=== PATIENT | female | born 1990 | race Caucasian/White ===

== ENCOUNTER 2016-06-23 15:31 | Emergency (ER) | payer MEDICAID ==
[~2016-06-23] VITALS: Ht 175.3 cm; Wt 95.5 kg
[~2016-06-23 15:31] MED LIST: RANI150 PO; VIST25CA PO; Z.0.BCPILL PO
[2016-06-23 15:34] VITALS: BP 129/84; PULSE 88; RESP 20; TEMP 98.5; O2SAT 98
--- NOTE | 2016-06-23 15:37 | PD ---
Physical Exam Time Seen by Provider: 15:35 Narrative 25 year old female here with heart palpitations for 3 days, "pounding" headache , "bloodshot" eyes. VSS Seen at triage desk, awaiting bed placement. Data Data Last Documented VS Vital Signs Date Time Temp Pulse Resp B/P Pulse Ox O2 Delivery O2 Flow Rate FiO2 06/23/16 15:34 98.5 88 20 129/84 98 Room Air [facility] Medical Record Reviewed: Yes Supervised Visit with ELIEZER: Yes Franklin Glover Jun 23, 2016 15:37
[2016-06-23 16:52] LABS: AUTOMATED NEUTROPHIL # 4.6 TH/MM3 (1.8-7.7); BASOPHIL % 0.4 % (0.0-2.0); EOSINOPHIL # 0.1 TH/MM3 (0-0.4); EOSINOPHIL % 0.8 % (0.0-4.0); HEMATOCRIT 39.1 % (35.0-46.0); HEMO FLAGS DIFF FINAL; LYMPH % 36.8 % (9.0-44.0); LYMPHOCYTE # 3.2 TH/MM3 (1.0-4.8); MEAN CORPUSCULAR HEMOGLOBIN 29.5 PG (27.0-34.0); MEAN CORPUSCULAR HGB CONC 33.1 % (32.0-36.0); MONO % 9.5 % (0.0-8.0); NEUT % 52.5 % (16.0-70.0); PLATELET COUNT 248 TH/MM3 (150-450); RED CELL DISTRIBUTION WIDTH 12.3 % (11.6-17.2); WHITE BLOOD COUNT 8.7 TH/MM3 (4.0-11.0)
--- NOTE | 2016-06-23 16:54 | PD ---
HPI Chief Complaint: Cardiac Complaint Time Seen by Provider: 16:18 Travel History International Travel<30 days: No Contact w/Intl Traveler<30days: No Traveled to known affect area: No History of Present Illness HPI 25-year-old female complains of palpitation, congestion, eye redness, and headache. Patient states that she has history of recurrent headache and has been seen by personal physician for that. Patient started noticed IV redness and palpitation since this morning. Patient states that she drinks coffee once a day. Patient denies any excessive caffeine intake. Patient states the headache aching headache diffuse over the head. Patient denies any visual change. Patient denies any neck pain. Patient denies any chest pain or shortness of breath. Patient denies abdominal pain. Patient denies any nausea vomiting diarrhea. Patient denies any history of thyroid disease. PFSH Past Medical History Anxiety: Yes Diminished Hearing: No Psychiatric: Yes (Anxiety disorder) Respiratory: Yes (BORN W/COLLAPSED TRACHEA) Immunizations Current: Yes ?: Not LMP: DEPO : 1 Para: 1 Miscarriage: 0 : 0 Past Surgical History Abdominal Surgery: Yes () Section: Yes (X2) Other Surgery: Yes (tracheal surgery for "collapsed trachea") Social History Alcohol Use: No Tobacco Use: No Substance Use: No Allergies-Medications (Allergen,Severity, Reaction): Coded Allergies: Keflex (Verified Allergy, Severe, TONGUE SWELLS, 06/23/16) Zithromax (Verified Allergy, Severe, TONGUE SWELLS, 06/23/16) Reported Meds & Prescriptions Reported Meds & Active Scripts Active No Active Prescriptions or Reported Medications Review of Systems General / Constitutional: No: Fever Eyes: No: Visual changes HENT: No: Headaches Cardiovascular: Positive: Palpitations, No: Chest Pain or Discomfort Respiratory: No: Shortness of Breath Gastrointestinal: No: Abdominal Pain Genitourinary: No: Dysuria Musculoskeletal: No: Pain Skin: No Rash Neurologic: No: Weakness Psychiatric: No: Depression Endocrine: No: Polydipsia Hematologic/Lymphatic: No: Easy Bruising Physical Exam Narrative GENERAL: Well-nourished, well-developed patient. SKIN: Focused skin assessment warm/dry. HEAD: Normocephalic. EYES: No scleral icterus. No injection or drainage. NECK: Supple, trachea midline. No JVD or lymphadenopathy. CARDIOVASCULAR: Irregular rate and rhythm without murmurs, gallops, or rubs. RESPIRATORY: Breath sounds equal bilaterally. No accessory muscle use. GASTROINTESTINAL: Abdomen soft, non-tender, nondistended. MUSCULOSKELETAL: No cyanosis, or edema. BACK: Nontender without obvious deformity. No CVA tenderness. Neurologic exam normal. Data Data Last Documented VS Vital Signs Date Time Temp Pulse Resp B/P Pulse Ox O2 Delivery O2 Flow Rate FiO2 06/23/16 16:00 74 18 Room Air 06/23/16 15:34 98.5 129/84 98 Orders Electrocardiogram (06/23/16 ) Complete Blood Count With Diff (06/23/16 16:32) Basic Metabolic Panel (Bmp) (06/23/16 16:32) Thyroid Stimulating Hormone (06/23/16 16:32) Iv Access Insert/Monitor (06/23/16 16:32) Ecg Monitoring (06/23/16 16:32) Oximetry (06/23/16 16:32) Ct Brain W/O Iv Contrast(Rout) (06/23/16 16:53) Labs Laboratory Tests Test 06/23/16 16:30 White Blood Count 8.7 TH/MM3 Red Blood Count 4.40 MIL/MM3 Hemoglobin 13.0 GM/DL Hematocrit 39.1 % Mean Corpuscular Volume 89.0 FL Mean Corpuscular Hemoglobin 29.5 PG Mean Corpuscular Hemoglobin 33.1 % Concent Red Cell Distribution Width 12.3 % Platelet Count 248 TH/MM3 Mean Platelet Volume 8.5 FL Neutrophils (%) (Auto) 52.5 % Lymphocytes (%) (Auto) 36.8 % Monocytes (%) (Auto) 9.5 % Eosinophils (%) (Auto) 0.8 % Basophils (%) (Auto) 0.4 % Neutrophils # (Auto) 4.6 TH/MM3 Lymphocytes # (Auto) 3.2 TH/MM3 Monocytes # (Auto) 0.8 TH/MM3 Eosinophils # (Auto) 0.1 TH/MM3 Basophils # (Auto) 0.0 TH/MM3 CBC Comment DIFF FINAL Differential Comment MDM Medical Decision Making Medical Screen Exam Complete: Yes Emergency Medical Condition: Yes Differential Diagnosis Differential diagnosis including cardiac arrhythmia, PACs, PVCs, atrial fibrillation, atrial flutter, arrhythmia, conjunctivitis, URI. Narrative Course 25-year-old female with palpitation, headache, redeye, congestion. Diagnosis Primary Impression: Cardiac arrhythmia Qualified Code: I49.1 - Atrial premature depolarization Additional Impressions: Cephalgia Qualified Code: R51 - Nonintractable episodic headache, unspecified headache type Conjunctivitis Qualified Code: B30.9 - Acute viral conjunctivitis of both eyes Scripts No Active Prescriptions or Reported Meds Gregg Gamboa MD Jun 23, 2016 16:54
[2016-06-23 17:17] LABS: BICARBONATE 28.3 MEQ/L (21.0-32.0); POTASSIUM 3.9 MEQ/L (3.5-5.1)
--- NOTE | 2016-06-23 17:24 | RADRPT ---
EXAM DATE/TIME: 06/23/2016 17:10 [facility] COMPARISON: No previous studies available for comparison. INDICATIONS : Headache with palpitations for 3 days. RADIATION DOSE: 35.97 CTDIvol (mGy) MEDICAL HISTORY : None SURGICAL HISTORY : None. ENCOUNTER: Initial ACUITY: 3 days PAIN SCALE: 7/10 LOCATION: cranial TECHNIQUE: Multiple contiguous axial images were obtained of the head. Using automated exposure control and adj ustment of the mA and/or kV according to patient size, radiation dose was kept as low as reasonably a chievable to obtain optimal diagnostic quality images. FINDINGS: CEREBRUM: The ventricles are normal for age. No evidence of midline shift, mass lesion, hemorrhage or acute in farction. No extra-axial fluid collections are seen. POSTERIOR FOSSA: The cerebellum and brainstem are intact. The 4th ventricle is midline. The cerebellopontine angle i s unremarkable. EXTRACRANIAL: The visualized portion of the orbits is intact. SKULL: The calvaria is intact. No evidence of skull fracture. CONCLUSION: Normal examination. Blanco Pena MD on June 23, 2016 at 17:22 Board Certified Radiologist. This report was verified electronically.
[2016-06-23 17:30] VITALS: BP 121/64; PULSE 73; RESP 18; O2SAT 99
[2016-06-23] MEDS ORDERED: KETOROLAC TROMETHAMINE 30 MG/ML (IVP) VIAL IV PUSH ONE (18:15)
--- NOTE | 2016-06-23 18:47 | PD ---
Physical Exam Narrative The patient was initially evaluated by the previous provider and sent out to me at the beginning of my shift pending labs, CT head, and disposition. See his note for further details. Briefly this is a 25-year-old female who is here for evaluation of posterior headache, palpitations, and bilateral red eyes. Patient has had intermittent headaches for weeks. This morning she noted bilateral red eyes. This afternoon she was having some palpitations in her chest. On my assessment the patient is resting comfortably. She states she feels well. Her physical exam is remarkable for bilateral conjunctival injection without exudate, otherwise unremarkable. Lung sounds are clear and equal bilaterally. Heart has a regular rate and rhythm. No murmurs. No nuchal rigidity. EKG: Sinus, rate 80, normal axis, normal intervals, no acute ischemic abnormality. Vital signs show heart rate 88, blood pressure 129/84, pulse ox 98% on room air , oral temp of 98.5F. CBC is unremarkable. BMP is unremarkable. TSH is 1.23. Urine is negative. CT head: Normal examination. Patient was given a dose of Toradol and reports significant improvement in her posterior head pain. She has no nuchal rigidity. SAH/meningitis/encephalitis are very unlikely. She was made aware of all findings. She does have bilateral conjunctivitis. I will prescribe Polytrim for this. She is overall very well-appearing. She'll be discharged home with outpatient follow-up with her primary care physician this week. She was informed on when to return to the emergency department. She verbalizes understanding and agreement with plan. Data Data Last Documented VS Vital Signs Date Time Temp Pulse Resp B/P Pulse Ox O2 Delivery O2 Flow Rate FiO2 06/23/16 17:30 73 18 121/64 99 Room Air 06/23/16 15:34 98.5 Orders Electrocardiogram (06/23/16 ) Complete Blood Count With Diff (06/23/16 16:32) Basic Metabolic Panel (Bmp) (06/23/16 16:32) Thyroid Stimulating Hormone (06/23/16 16:32) Iv Access Insert/Monitor (06/23/16 16:32) Ecg Monitoring (06/23/16 16:32) Oximetry (06/23/16 16:32) Ct Brain W/O Iv Contrast(Rout) (06/23/16 16:53) Ed Urine Pregnancytest Poc (06/23/16 17:12) Ketorolac Inj (Toradol Inj) (06/23/16 18:15) Labs Laboratory Tests Test 06/23/16 16:30 White Blood Count 8.7 TH/MM3 Red Blood Count 4.40 MIL/MM3 Hemoglobin 13.0 GM/DL Hematocrit 39.1 % Mean Corpuscular Volume 89.0 FL Mean Corpuscular Hemoglobin 29.5 PG Mean Corpuscular Hemoglobin 33.1 % Concent Red Cell Distribution Width 12.3 % Platelet Count 248 TH/MM3 Mean Platelet Volume 8.5 FL Neutrophils (%) (Auto) 52.5 % Lymphocytes (%) (Auto) 36.8 % Monocytes (%) (Auto) 9.5 % Eosinophils (%) (Auto) 0.8 % Basophils (%) (Auto) 0.4 % Neutrophils # (Auto) 4.6 TH/MM3 Lymphocytes # (Auto) 3.2 TH/MM3 Monocytes # (Auto) 0.8 TH/MM3 Eosinophils # (Auto) 0.1 TH/MM3 Basophils # (Auto) 0.0 TH/MM3 CBC Comment DIFF FINAL Differential Comment Sodium Level 141 MEQ/L Potassium Level 3.9 MEQ/L Chloride Level 106 MEQ/L Carbon Dioxide Level 28.3 MEQ/L Anion Gap 7 MEQ/L Blood Urea Nitrogen 15 MG/DL Creatinine 0.89 MG/DL Estimat Glomerular Filtration 79 ML/MIN Rate Random Glucose 94 MG/DL Calcium Level 9.2 MG/DL Thyroid Stimulating Hormone 1.230 uIU/ML 3rd Gen [facility] Supervised Visit with ELIEZER: No Diagnosis Primary Impression: Palpitations Additional Impressions: Conjunctivitis Qualified Code: B30.9 - Acute viral conjunctivitis of both eyes Cephalgia Qualified Code: R51 - Nonintractable episodic headache, unspecified headache type Referrals: Primary Care Physician 3 days Additional Instruction: Follow-up with your primary care physician this week. Return to the emergency department for worsening symptoms or any other concerns. Scripts Polymyxin B-Trimethoprim Opth Drops (Polytrim Opth Drops)10,000-0.1 Unit/Ml-% Soln1 Drop EACH EYE Q6HR 7 Days Ref 0 Prov:Andrea Keller MD 06/23/16 Disposition: 01 DISCHARGE HOME Condition: Stable Andrea Keller MD Jun 23, 2016 18:47
[2016-06-23] MEDS ORDERED: POLY10O EACH EYE (18:49)
--- NOTE | 2016-06-24 11:01 | EKG ---
Date Performed: 06/23/2016 Time Performed: 15:56:27 PTAGE: 25 years EKG: Sinus rhythm WITH SINUS ARRHYTHMIA NORMAL ECG PREVIOUS TRACING : 11/17/2015 02.54 DOCTOR: Juan Jose Brooke Interpretating Date/Time 06/24/2016 10:59:42
== END 2016-06-23 19:04 | disposition home or self-care (01) ==
LOC: NEPD 15:31
DX: R00.2 Palpitations (principal); I49.9 Cardiac arrhythmia, unspecified; R51 Headache; B30.9 Viral conjunctivitis, unspecified
CPT/HCPCS: 70450; 80048; 84443; 84703; 85025; 93005; 96374; 99285; J1885

== ENCOUNTER 2016-10-23 17:46 | Emergency (ER) | payer MEDICAID ==
[~2016-10-23] VITALS: Ht 175.3 cm; Wt 100.9 kg
[~2016-10-23 17:46] MED LIST changes: +POLY10O EACH EYE; -RANI150 PO; -VIST25CA PO; -Z.0.BCPILL PO
[2016-10-23 18:41] VITALS: BP 120/75; PULSE 75; RESP 16; TEMP 98; O2SAT 95
[2016-10-23] MEDS ORDERED: SODIUM CHLOR 0.9% 1000 ML INJ 1,000 ML IV SCH (18:42)
[2016-10-23] MEDS ORDERED: ONDANSETRON HCL 4 MG/2 ML VIAL IVP ONE (18:45)
[2016-10-23] MEDS ORDERED: SODIUM CHLORIDE 0.9% FLUSH 10 ML FLUSH IV FLUSH PRN (18:45)
[2016-10-23] MEDS ORDERED: FAMOTIDINE 20 MG/2 ML VIAL IV PUSH ONE (18:45)
--- NOTE | 2016-10-23 18:55 | PD ---
HPI Chief Complaint: Abdominal Pain Time Seen by Provider: 18:34 Travel History International Travel<30 days: No Contact w/Intl Traveler<30days: No Traveled to known affect area: No History of Present Illness HPI Patient is a 26-year-old female who presents to emergency room complaints of abdominal cramping with n/v/d. Patient reports that for the past week, she's had intermittent nausea, vomiting diarrhea. Reports that her pain is located her upper abdomen, reports that her diarrhea began today. Reports that she had too many episodes of diarrhea to count. Patient reports that she has not been on any antibiotics recently but has had a cough. Denies any fever/chills. 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 Denies any recent travels/ trips. Denies dysuria/urinary urgency/freq. PFSH Past Medical History Anxiety: Yes Diminished Hearing: No Psychiatric: Yes (Anxiety disorder) Respiratory: Yes (BORN W/COLLAPSED TRACHEA) Immunizations Current: Yes Tetanus Vaccination: < 5 Years Influenza Vaccination: Yes ?: Not LMP: DEPO; SEPT : 1 Para: 1 Miscarriage: 0 : 0 Past Surgical History Abdominal Surgery: Yes () Section: Yes (X2) Other Surgery: Yes (tracheal surgery for "collapsed trachea") Social History Alcohol Use: No Tobacco Use: No Substance Use: No Allergies-Medications (Allergen,Severity, Reaction): Coded Allergies: Keflex (Verified Allergy, Severe, TONGUE SWELLS, 06/23/16) Zithromax (Verified Allergy, Severe, TONGUE SWELLS, 06/23/16) Reported Meds & Prescriptions Reported Meds & Active Scripts Active Zofran (Ondansetron HCl) 4 Mg Tab 4 Mg PO Q6HR PRN Bentyl (Dicyclomine HCl) 10 Mg Cap 10 Mg PO TID PRN Review of Systems General / Constitutional: No: Fever, Chills Eyes: No: Visual changes HENT: No: Headaches Cardiovascular: No: Chest Pain or Discomfort Respiratory: No: Cough, Shortness of Breath, Wheezing Gastrointestinal: Positive: Nausea, Vomiting, Diarrhea, Abdominal Pain Genitourinary: No: Dysuria Musculoskeletal: No: Pain Skin: No Rash Neurologic: No: Weakness Psychiatric: No: Depression Endocrine: No: Polydipsia Hematologic/Lymphatic: No: Easy Bruising Physical Exam Narrative GENERAL: Mild distress SKIN: Focused skin assessment warm/dry. HEAD: Atraumatic. Normocephalic. EYES: Pupils equal and round. No scleral icterus. No injection or drainage. ENT: No nasal bleeding or discharge. Mucous membranes pink and moist. NECK: Trachea midline. No JVD. CARDIOVASCULAR: Regular rate and rhythm. No murmur appreciated. RESPIRATORY: No accessory muscle use. Clear to auscultation. Breath sounds equal bilaterally. GASTROINTESTINAL: Abdomen soft, mildly tender to upper abdomen with no rebound or guarding, nondistended. Hepatic and splenic margins not palpable. MUSCULOSKELETAL: No obvious deformities. No clubbing. No cyanosis. No edema. NEUROLOGICAL: Awake and alert. No obvious cranial nerve deficits. Motor grossly within normal limits. Normal speech. PSYCHIATRIC: Appropriate mood and affect; insight and judgment normal. Data Data Last Documented VS Vital Signs Date Time Temp Pulse Resp B/P Pulse Ox O2 Delivery O2 Flow Rate FiO2 10/23/16 19:20 18 97 Room Air 10/23/16 19:18 98.5 96 119/58 Orders Complete Blood Count With Diff (10/23/16 18:42) Comprehensive Metabolic Panel (10/23/16 18:42) Lipase (10/23/16 18:42) Prothrombin Time / Inr (Pt) (10/23/16 18:42) Act Partial Throm Time (Ptt) (10/23/16 18:42) Urinalysis - C+S If Indicated (10/23/16 18:42) Iv Access Insert/Monitor (10/23/16 18:42) Oximetry (10/23/16 18:42) NPO (10/23/16 18:42) Ondansetron Inj (Zofran Inj) (10/23/16 18:45) Sodium Chlor 0.9% 1000 Ml Inj (Ns 1000 M (10/23/16 18:42) Sodium Chloride 0.9% Flush (Ns Flush) (10/23/16 18:45) Chest, Single Ap (10/23/16 18:42) Famotidine Inj (Pepcid Inj) (10/23/16 18:45) Ed Urine Pregnancytest Poc (10/23/16 18:42) Sodium Chlor 0.9% 1000 Ml Inj (Ns 1000 M (10/23/16 19:00) Dicyclomine (Bentyl) (10/23/16 19:30) Labs Laboratory Tests Test 10/23/16 18:54 White Blood Count 12.9 TH/MM3 Red Blood Count 5.16 MIL/MM3 Hemoglobin 15.1 GM/DL Hematocrit 45.4 % Mean Corpuscular Volume 87.9 FL Mean Corpuscular Hemoglobin 29.1 PG Mean Corpuscular Hemoglobin 33.2 % Concent Red Cell Distribution Width 11.6 % Platelet Count 318 TH/MM3 Mean Platelet Volume 8.4 FL Neutrophils (%) (Auto) 86.7 % Lymphocytes (%) (Auto) 5.8 % Monocytes (%) (Auto) 5.4 % Eosinophils (%) (Auto) 0.3 % Basophils (%) (Auto) 1.8 % Neutrophils # (Auto) 11.2 TH/MM3 Lymphocytes # (Auto) 0.8 TH/MM3 Monocytes # (Auto) 0.7 TH/MM3 Eosinophils # (Auto) 0.0 TH/MM3 Basophils # (Auto) 0.2 TH/MM3 CBC Comment DIFF FINAL Differential Comment Prothrombin Time 11.0 SEC Prothromb Time International 1.0 RATIO Ratio Activated Partial 29.1 SEC Thromboplast Time Urine Color YELLOW Urine Turbidity CLEAR Urine pH 5.5 Urine Specific [place] 1.031 Urine Protein 30 mg/dL Urine Glucose (UA) NEG mg/dL Urine Ketones TRACE mg/dL Urine Occult Blood NEG Urine Nitrite NEG Urine Bilirubin NEG Urine Leukocyte Esterase NEG Urine RBC 0-2 /hpf Urine WBC 3-5 /hpf Urine Squamous Epithelial 0-5 /hpf Cells Urine Bacteria RARE /hpf Microscopic Urinalysis Comment CULT NOT INDICATED Sodium Level 138 MEQ/L Potassium Level 3.9 MEQ/L Chloride Level 108 MEQ/L Carbon Dioxide Level 21.0 MEQ/L Anion Gap 9 MEQ/L Blood Urea Nitrogen 15 MG/DL Creatinine 0.86 MG/DL Estimat Glomerular Filtration 81 ML/MIN Rate Random Glucose 117 MG/DL Calcium Level 9.8 MG/DL Total Bilirubin 0.7 MG/DL Aspartate Amino Transf 14 U/L (AST/SGOT) Alanine Aminotransferase 19 U/L (ALT/SGPT) Alkaline Phosphatase 83 U/L Total Protein 8.4 GM/DL Albumin 4.1 GM/DL Lipase 98 U/L [facility] Medical Decision Making Medical Screen Exam Complete: Yes Emergency Medical Condition: Yes Interpretation(s) Vital Signs Date Time Temp Pulse Resp B/P Pulse Ox O2 Delivery O2 Flow Rate FiO2 10/23/16 18:41 98.0 75 16 120/75 95 Differential Diagnosis Differential includes gastris, gastroenteritis, viral syndrome, dehydration Narrative Course Patient is a 26 year old female who presents to ER with c/o of abdominal cramping with nausea vomiting diarrhea for the past week. Patient reports that she is able to drink fluids, she is unable to hold anything solid down. Denies any fevers or chills, reports mild cough. No recent travels or sick contacts, she has not had any recent antibiotics. Patient is nontoxic on evaluation, vital signs are stable. Abdomen is soft, mildly tender to her upper abdomen, nondistended, there are no peritoneal signs. Plan to give obtain lab work, UA, will give IV fluids and antiemetics and monitor patient. Vital Signs Date Time Temp Pulse Resp B/P Pulse Ox O2 Delivery O2 Flow Rate FiO2 10/23/16 19:20 18 97 Room Air 10/23/16 19:18 98.5 96 18 119/58 97 Room Air 10/23/16 18:41 98.0 75 16 120/75 95 CBC & BMP Diagram 10/23/16 18:54 Patient reevaluated, abdomen is soft, nontender, nondistended, no peritoneal signs. Patient is feeling much better at this time, patient reports complete relief of symptoms. Signs and symptoms of when to return to the emergency room was reviewed patient in detail. Patient will follow up with her primary care doctor and will return to emergency room as needed. Diagnosis Primary Impression: Nausea vomiting and diarrhea Additional Impression: Dehydration Patient Instructions: General Instructions Departure Forms: Tests/Procedures, Work Release Enter return to work date: Oct 26, 2016 Additional Instructions: Please drink plenty of fluids Return to ER if symptoms worsen or progress Return to ER as needed Please follow up with your primary care doctor Med/Other Pt SpecificInfo: Prescription(s) given Scripts Ondansetron (Zofran)4 Mg Tab4 Mg PO Q6HR PRN (NAUSEA OR VOMITING) #20 TAB Ref 0 Prov:Polly Echols DO 10/23/16 Dicyclomine (Bentyl)10 Mg Cap10 Mg PO TID PRN (ABDOMINAL CRAMPING) #15 CAP Ref 0 Prov:Polly Echols DO 10/23/16 Disposition: 01 DISCHARGE HOME Condition: Stable Polly Echols DO Oct 23, 2016 18:55
[2016-10-23] MEDS ORDERED: SODIUM CHLOR 0.9% 1000 ML INJ 1,000 ML IV ONE (19:00)
[2016-10-23 19:04] LABS: AUTOMATED NEUTROPHIL # 11.2 TH/MM3 (1.8-7.7); BASOPHIL # 0.2 TH/MM3 (0-0.2); BASOPHIL % 1.8 % (0.0-2.0); BLOOD, URINE NEG (NEG); EOSINOPHIL % 0.3 % (0.0-4.0); GLUCOSE,URINE NEG (NEG); HEMATOCRIT 45.4 % (35.0-46.0); KETONE, URINE TRACE mg/dL (NEG); LYMPH % 5.8 % (9.0-44.0); LYMPHOCYTE # 0.8 TH/MM3 (1.0-4.8); MEAN CELL VOLUME 87.9 FL (80.0-100.0); MEAN CORPUSCULAR HEMOGLOBIN 29.1 PG (27.0-34.0); MEAN CORPUSCULAR HGB CONC 33.2 % (32.0-36.0); MONO % 5.4 % (0.0-8.0); NEUT % 86.7 % (16.0-70.0); NITRITE,URINE NEG (NEG); PH, URINE 5.5 (5.0-8.5); PLATELET COUNT 318 TH/MM3 (150-450); RED BLOOD COUNT 5.16 MIL/MM3 (4.00-5.30); RED CELL DISTRIBUTION WIDTH 11.6 % (11.6-17.2); WHITE BLOOD COUNT 12.9 TH/MM3 (4.0-11.0)
[2016-10-23 19:06] LABS: URINE COLOR YELLOW (YELLW/STRAW)
[2016-10-23 19:12] LABS: BACTERIA, URINE RARE /hpf; RBC, URINE 0-2 /hpf (0-3); SQUAMOUS EPITHELIAL CELL URINE 0-5 /hpf (0-5)
[2016-10-23 19:13] LABS: COMMENT (UR) CULT NOT INDICATED; COMMENT2 (UR) MUCOUS PRESENT; CULTURE IF INDICATED CULT NOT INDICATED
[2016-10-23 19:14] LABS: HEMO FLAGS DIFF FINAL
[2016-10-23 19:16] LABS: CHLORIDE 108 MEQ/L (98-107); POTASSIUM 3.9 MEQ/L (3.5-5.1); SODIUM (NA) 138 MEQ/L (136-145)
[2016-10-23 19:18] VITALS: BP 119/58; PULSE 96; RESP 18; TEMP 98.5; O2SAT 97
--- NOTE | 2016-10-23 19:18 | RADRPT ---
EXAM DATE/TIME: 10/23/2016 18:56 [facility] COMPARISON: No previous studies available for comparison. INDICATIONS : Cough. MEDICAL HISTORY : None. SURGICAL HISTORY : None. ENCOUNTER: Initial ACUITY: 4 - 6 days PAIN SCORE: 4/10 LOCATION: Bilateral chest FINDINGS: A single view of the chest demonstrates the lungs to be symmetrically aerated without evidence of mas s, infiltrate or effusion. The cardiomediastinal contours are unremarkable. Osseous structures are intact. CONCLUSION: No acute disease. Art Alaniz MD on October 23, 2016 at 19:16 Board Certified Radiologist. This report was verified electronically.
[2016-10-23 19:20] VITALS: RESP 18; O2SAT 97
[2016-10-23 19:20] LABS: ANION GAP 9 MEQ/L (5-15); BLOOD UREA NITROGEN 15 MG/DL (7-18)
[2016-10-23 19:22] LABS: APTT (PATIENT) 29.1 SEC (24.3-30.1)
[2016-10-23 19:23] LABS: ALT (GPT) 19 U/L (10-53); AST (GOT) 14 U/L (15-37); GLOMERULAR FILTRATION RATE 81 ML/MIN (>89)
[2016-10-23 19:25] LABS: TOTAL BILIRUBIN ADULT 0.7 MG/DL (0.2-1.0)
[2016-10-23 19:26] LABS: ALKALINE PHOSPHATASE 83 U/L (45-117)
[2016-10-23] MEDS ORDERED: DICYCLOMINE HCL 20 MG TAB PO ONE (19:30)
[2016-10-23] MEDS ORDERED: DICY10 PO (20:18)
[2016-10-23] MEDS ORDERED: ZOFR4TAB PO (20:18)
[2016-10-23 21:20] VITALS: BP 118/62
== END 2016-10-23 21:21 | disposition home or self-care (01) ==
LOC: PHED 17:46
DX: R11.2 Nausea with vomiting, unspecified (principal); R19.7 Diarrhea, unspecified; R10.9 Unspecified abdominal pain; E86.0 Dehydration
CPT/HCPCS: 71010; 80053; 81001; 83690; 84703; 85025; 85610; 85730; 96361; 96374; 96375; 99284; J2405; J7030

== ENCOUNTER 2017-06-11 00:06 | Emergency (ER) | payer MEDICAID ==
[~2017-06-11] VITALS: Ht 175.3 cm; Wt 116.3 kg
[~2017-06-11 00:06] MED LIST changes: +ACET120S PO; +AUGM500T7 PO; -POLY10O EACH EYE
[2017-06-11 00:09] VITALS: BP 132/74; PULSE 96; RESP 20; TEMP 98.1; O2SAT 98
[2017-06-11 00:30] VITALS: BP 120/67; PULSE 90; RESP 16; O2SAT 99
--- NOTE | 2017-06-11 01:21 | PD ---
HPI Chief Complaint: Respiratory Symptoms Time Seen by Provider: 01:08 Travel History International Travel<30 days: No Contact w/Intl Traveler<30days: No Traveled to known affect area: No History of Present Illness HPI The patient is a 26-year-old female that comes in because of a cough and pain in her chest that radiates to her right back. It is been going on for 3 hours. She feels congested. She states she had 102 fever today. She denies any shortness of breath. The cough has been productive of clear sputum lately but earlier today she had some green sputum. She is not smoked. She denies any nausea except once she coughed hard and got nauseated after the cough. The pain is sharp and radiates to the back. PFSH Past Medical History Anxiety: Yes Diminished Hearing: No Psychiatric: Yes (Anxiety disorder) Respiratory: Yes (BORN W/COLLAPSED TRACHEA) Immunizations Current: Yes ?: Not : 1 Para: 1 Miscarriage: 0 : 0 Past Surgical History Abdominal Surgery: Yes () Section: Yes Other Surgery: Yes (tracheal surgery for "collapsed trachea") Social History Alcohol Use: Yes Tobacco Use: No Substance Use: No Allergies-Medications (Allergen,Severity, Reaction): Coded Allergies: azithromycin (Verified Allergy, Severe, TONGUE SWELLS, 01/08/17) cephalexin (Verified Allergy, Severe, TONGUE SWELLS, 01/08/17) Reported Meds & Prescriptions Reported Meds & Active Scripts Active Tylenol-Codeine Elixir (Acetaminophen-Codeine Liq) 120-12 Mg/5 Ml Soln 5-10 Ml PO Q6H PRN Reported Augmentin (Amoxicillin-Clavulanate) 500-125 mg Tab 500 Mg PO BID Review of Systems Except as stated in HPI: all other systems reviewed are Neg Physical Exam Narrative GENERAL: Well-nourished, well-developed patient in no respiratory distress. Her vital signs are normal. Oximetry is 98% on room air. SKIN: Focused skin assessment warm/dry. HEAD: Normocephalic. EYES: No scleral icterus. No injection or drainage. NECK: Supple, trachea midline. No JVD or lymphadenopathy. CARDIOVASCULAR: Regular rate and rhythm without murmurs, gallops, or rubs. I cannot reproduce the patient's chest pain by pressing on the chest wall where she perceives her pain. I can reproduce it slightly on the back which he perceives her pain. RESPIRATORY: Breath sounds equal bilaterally. No accessory muscle use. GASTROINTESTINAL: Abdomen soft, non-tender, nondistended. MUSCULOSKELETAL: No cyanosis, or edema. BACK: Nontender without obvious deformity. No CVA tenderness. Data Data Last Documented VS Vital Signs Date Time Temp Pulse Resp B/P (MAP) Pulse Ox O2 Delivery O2 Flow Rate FiO2 06/11/17 00:45 20 99 06/11/17 00:30 90 120/67 (84) 06/11/17 00:09 98.1 Orders Orders Chest, Pa & Lat (06/11/17 01:17) Influenzae A/B Antigen (06/11/17 01:21) MDM Medical Decision Making Medical Screen Exam Complete: Yes Emergency Medical Condition: Yes Medical Record Reviewed: Yes Interpretation(s) The chest x-ray shows no acute cardiopulmonary disease. The influenza A/B antigen is negative for flu a and flu B antigen. Differential Diagnosis Pleurisy, chest wall pain, pneumothorax-unlikely, viral upper respiratory infection, flu syndrome Narrative Course The patient appears to have pleurisy. She likely has a nonspecific viral syndrome. Plan: The patient be given Motrin 600 mg 3 times daily and is given a shot of Toradol here. She needs to follow-up with her primary care physician next week. Diagnosis Primary Impression: Pleurisy Additional Impression: Viral syndrome Additional Instructions: Follow-up with your primary care physician next week. The Motrin is taken regularly for about 4 or 5 days, 1 tablet 3 times daily. Usually this increased inflammatory level in your body results in reduction of the chest pain. Med/Other Pt SpecificInfo: Prescription(s) given Scripts Ibuprofen (Ibuprofen) 600 Mg Tab 600 MG PO TID, #33 TAB 0 Refills Prov: Terry Finnegan MD 06/11/17 Disposition: 01 DISCHARGE HOME Condition: Stable Terry Finnegan MD Jun 11, 2017 01:21
--- NOTE | 2017-06-11 01:54 | RADRPT ---
EXAM DATE/TIME: 06/11/2017 01:30 [facility] COMPARISON: No previous studies available for comparison. INDICATIONS : Cough for 24 hours MEDICAL HISTORY : None. SURGICAL HISTORY : None. ENCOUNTER: Initial ACUITY: 1 day PAIN SCORE: 0/10 LOCATION: Bilateral chest FINDINGS: PA and lateral views of the chest demonstrate the lungs to be symmetrically aerated without evidence of mass, infiltrate or effusion. The cardiomediastinal contours are unremarkable. Osseous structure s are intact. CONCLUSION: No evidence of acute cardiopulmonary disease. Henrik Leija MD on June 11, 2017 at 1:52 Board Certified Radiologist. This report was verified electronically.
[2017-06-11] MEDS ORDERED: IBUP-232 PO (02:16)
[2017-06-11] MEDS ORDERED: KETOROLAC TROMETHAMINE 60 MG/2 ML (IM) VIAL IM ONE (02:30)
[2017-06-11 02:59] VITALS: BP 115/61
== END 2017-06-11 03:02 | disposition home or self-care (01) ==
LOC: PHED 00:06
DX: R09.1 Pleurisy (principal); B34.9 Viral infection, unspecified; F41.9 Anxiety disorder, unspecified; Z88.8 Allergy status to other drugs, medicaments and biological substances
CPT/HCPCS: 71046; 87804; 96372; 99284; J1885